=== PATIENT | male | born 1960 | race Caucasian/White ===

== ENCOUNTER 2024-08-01 06:12 | Day surgery (SDC) | payer OTHER, SELFPAY ==
[2024-08-01] MEDS: LACTATED RINGERS 1000 ML 1,000 ML 100 ML IV (06:25)
[2024-08-01 06:41] VITALS: BP 108/59; PULSE 62; RESP 16; TEMP 36.6; O2SAT 96; BMI 27.9
[2024-08-01] MEDS: SODIUM CHLORIDE 0.9 % (FLUSH) 10 ML SYRINGE IVF (06:44)
--- NOTE | 2024-08-01 07:27 | P.ANES_ITS ---
Anesthesia Charges Start Date/Time Anesthesia Start Date: 08/01/24 Anesthesia Start Time: 07:21 Stop Date/Time Anesthesia Stop Date: 08/01/24 Anesthesia Stop Time: 08:41 Coding CPT Codes CPT Codes: ANESTH REPAIR OF HERNIA - 83747 ([id number]) P3 - PATIENT W/SEVERE SYS DISEASE, QK - MICE RAISER 2-4 CNCRNT ANES PROC, QX - BOX FOLDING MACHINE OPERATOR SVC W/ MD MED DIRECTION
--- NOTE | 2024-08-01 07:27 | W.ANESCHARGE ---
Anesthesia Charges Start Date/Time Anesthesia Start Date: 08/01/24 Anesthesia Start Time: 07:21 Stop Date/Time Anesthesia Stop Date: 08/01/24 Anesthesia Stop Time: 08:41 Coding CPT Codes CPT Codes: ANESTH REPAIR OF HERNIA - 38053 ([id number]) P3 - PATIENT W/SEVERE SYS DISEASE, QK - TRANSITION MANAGER 2-4 CNCRNT ANES PROC, QX - OUTSIDE DEALER SALES REPRESENTATIVE SVC W/ MD MED DIRECTION
--- NOTE | 2024-08-01 07:30 | W.PM.H&PU ---
History & Physical Update History & Physical Update H&P Reviewed and patient assessed: No changes noted
[2024-08-01] MEDS: CEFAZOLIN 1 GM inj IVP (07:32)
--- NOTE | 2024-08-01 07:32 | PM.GSPRC ---
Operative Note Date of procedure: 08/01/24 Pre-op diagnosis: 1. Right lateral scrotal pain and small inguinal hernia. Post-op diagnosis: 1. Weakness of right inguinal floor. Type of Procedure: 1. Open right inguinal hernia repair with mesh. Indications: 64-year-old male with history of left inguinal hernia repair was seen in clinic for evaluation of right scrotal pain and right groin pain. Patient states that he has been remodeling his new home and noticed right lateral scrotal pain that was worse with strenuous activity. He also felt like it was worse when he sat down at the end of the day. The pain was described as dull. Patient was seen by the primary care doctor and a scrotal ultrasound was obtained that showed a small left epididymal cyst but no abnormalities in the right side. On clinical exam with the patient standing up in doing Valsalva there was a small right inguinal hernia noted. Patient had discomfort with this part of the exam. Patient also had localized tenderness to palpation in the lateral right scrotum. Given patient's clinical history and his ultrasound findings, his symptoms could possibly be related to a small hernia or a neuropathy. We discussed a trial of ibuprofen versus surgical repair and patient desired to proceed with surgery. The procedure of open right inguinal hernia repair with mesh was discussed with the patient. The procedure was discussed in detail. The risks associated procedure including infection, bleeding, injury to preperitoneal organs, persistent pain, and hernia recurrence for all discussed with the patient, and he agreed to proceed. Procedure Description: After discussing the risks and benefits of the procedure, the patient signed informed consent.? The operative site was marked and the patient was brought to the operating room and placed on the operating table in supine position.? Care was taken to pad the patient's pressure points.?? The patient was then sedated by anesthesia.?? The operative site was then prepped and draped in the usual sterile fashion.? A time-out was then performed. Surgical site was prepped and draped in sterile fashion. Site of the incision was marked with a marking pen and local anesthetic was injected. An oblique incision was made just above and medial to inguinal ligament. Subcutaneous tissue was dissected to external obliques. Superficial subcutaneous vascular branches were clamped, divided and tied with 3-0 Vicryl ties. Small incision was made through the external oblique aponeurosis with scalpel. I then used Metzenbaum scissors to dissect under external obliques and extend my incision. Mosquito clamps were placed on the edges of external oblique exposing the inguinal floor. The right Ilioinguinal nerve was identified and was going through the plain of dissection. The nerve was divided proximally and distally and a 3 cm segment of it was excised. This was not sent to pathology. I then identified the spermatic cord and the hernia sac. I bluntly dissected subcutaneous tissues in order to place [place] drain around the cord structures. Cremasteric fibers were peeled off and dissected off the hernia sac and cord structures. The right spermatic cord was closely examined and there was no evidence of indirect inguinal hernia. The right inguinal floor was weak suggestive of direct inguinal hernia. A Bard mesh onlay was also used for hernia repair. The mesh onlay was sutured in place with interrupted 0-0 Neurolon sutures to the conjoint tendon medially and shelving edge laterally, pubic tubercle inferiorly. Simple interrupted sutures were placed using 0-0 Neurolon at the base of internal inguinal ring making it only large enough to fit a tip of one finger through. Spermatic cord was placed back into scrotum. [place] drain was removed. External oblique aponeurosis was closed with a running 3-0 Vicryl. Additional local anesthetic was injected into subcutaneous tissues. Barbara's fascia and subcutaneous tissue was re-approximated with interrupted Vicryl stitches. Skin incision was closed with 4-0 Monocryl subcuticular stitch. Steri strips and sterile dressing were applied over incision. All counts were correct at the end of the case. Patient tolerated this procedure well and was transferred to PACU in stable condition. Findings: Weak inguinal floor with no evidence of indirect inguinal hernia. Anesthesia: MAC and local Surgeon: Madhuri Jara MD Estimated blood loss (mL): 5 Condition: stable Disposition: same day
[2024-08-01] MEDS: LIDOCAINE 1%-EPI 1:100,000 20 ML INFILTRATI (07:42)
[2024-08-01] MEDS: BUPIVACAINE 0.25% 30 ML 20 ML INJECTION (07:42)
[2024-08-01 08:37] VITALS: BP 84/49; PULSE 61; RESP 16; TEMP 36.6; O2SAT 92
--- NOTE | 2024-08-01 08:44 | P.ANES_ITS ---
Anesthesia Charges Start Date/Time Anesthesia Start Date: 08/01/24 Anesthesia Start Time: 07:21 Stop Date/Time Anesthesia Stop Date: 08/01/24 Anesthesia Stop Time: 08:41 Coding CPT Codes CPT Codes: ANESTH REPAIR OF HERNIA - 99161 ([id number]) P3 - PATIENT W/SEVERE SYS DISEASE, QK - BROADCAST PROGRAM DIRECTOR 2-4 CNCRNT ANES PROC, QX - FELT CARBONIZER SVC W/ MD MED DIRECTION
--- NOTE | 2024-08-01 08:44 | W.ANESCHARGE ---
Anesthesia Charges Start Date/Time Anesthesia Start Date: 08/01/24 Anesthesia Start Time: 07:21 Stop Date/Time Anesthesia Stop Date: 08/01/24 Anesthesia Stop Time: 08:41 Coding CPT Codes CPT Codes: ANESTH REPAIR OF HERNIA - 09929 ([id number]) P3 - PATIENT W/SEVERE SYS DISEASE, QK - WILDLIFE BIOLOGY INTERNSHIP 2-4 CNCRNT ANES PROC, QX - DIAL MAKER SVC W/ MD MED DIRECTION
[2024-08-01 08:45] VITALS: BP 83/54; PULSE 60; RESP 16; O2SAT 96
[2024-08-01 09:00] VITALS: BP 88/58; PULSE 60; RESP 16; O2SAT 95
[2024-08-01 09:15] VITALS: BP 96/63; PULSE 61; RESP 16; O2SAT 97
[2024-08-01 09:30] VITALS: BP 92/60; PULSE 60; RESP 16; O2SAT 97
== END 2024-08-01 09:48 | disposition home or self-care (01) ==
PROVIDERS: PCP Surgery; Visit Provider Surgery
PROC: (CPT 49505; principal; 2024-08-01 07:30)
DX: K40.90 Unilateral inguinal hernia, without obstruction or gangrene, not specified as recurrent (principal); N50.82 Scrotal pain
CPT/HCPCS: 49505; 00830; C1781; J0665; J0690; J1100; J2250; J2371; J2405; J2704; J3010; J3490; J7120